=== PATIENT | female | born 1975 | race Hispanic/Latino ===

== ENCOUNTER 2024-04-28 08:18 | Emergency (ER) | payer BC ==
[2024-04-28] MEDS ORDERED: SMZ./TMP. 800/160 MG TABLET ONE (08:50)
[2024-04-28] MEDS ORDERED: CEPHALEXIN 250 MG CAP ONE (08:50)
--- NOTE | 2024-04-28 09:06 | ER ---
Nurse's Notes [facility] Name: Alem Allison Age: 48 yrs Sex: Female : 1975 Arrival Date: 04/28/2024 Time: 08:18 Bed IW1 Private MD: Diagnosis: Cellulitis of head [any part, except face] Presentation: 04/28 08:47 Chief complaint: Patient states: skin irritation to top of head that began 04/23. ss Coronavirus screen: Client denies travel out of the [place] in the last 14 days. Ebola Screen: Patient denies exposure to infectious person. Patient denies travel to an Ebola-affected area in the 21 days before illness onset. Initial Sepsis Screen: Does the patient meet any 2 criteria? No. Patient's initial sepsis screen is negative. Does the patient have a suspected source of infection? No. Patient's initial sepsis screen is negative. Risk Assessment: Do you want to hurt yourself or someone else? Patient reports no desire to harm self or others. Onset of symptoms was April 23, 2024. 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 - Infectious Disease History:: Denies. - Family history:: not pertinent. - Social history:: Smoking status: Patient denies any tobacco usage or history of. - Hospitalizations: : No recent hospitalization is reported. Screenin:20 Abuse screen: Denies threats or abuse. Denies injuries from another. Nutritional ss screening: No deficits noted. Tuberculosis screening: Never had TB. Assessment: 09:20 Reassessment: No changes from previously documented assessment. Patient is alert, ss oriented x 3, equal unlabored respirations, skin warm/dry/pink. Vital Signs: 08:47 Pulse 100; Resp 16; Temp 97.9(TE); Pulse Ox 100% ; Weight 112.04 kg; Height 5 ft. 5 in. ss ; Pain 8; 08:47 Body Mass Index 41.10 (112.04 kg, 165.1 cm) ss 08:47 Pain Scale: Adult ss ED Course: 08:21 Patient arrived in ED. mr 08:22 Trevin Bunch MD is Attending Physician. rn 08:48 Triage completed. ss 08:49 Arm band placed on left wrist. ss 09:20 Deb Christian, KADE is Primary Nurse. ss 09:20 Patient has correct armband on for positive identification. ss 09:20 No provider procedures requiring assistance completed. Patient did not have IV access ss during this emergency room visit. Administered Medications: 08:56 Drug: Trimethoprim-Sulfamethoxazole PO (160 mg-800 mg (DS) 2 tablet PO once Route: PO; ss 09:23 Follow up: Response: No adverse reaction; Medication Administered at Departure ss 08:56 Drug: Cephalexin PO 500 mg PO once Route: PO; ss 09:23 Follow up: Response: Medication Administered at Departure ss Medication: 09:20 VIS not applicable for this client. ss Outcome: 09:06 Discharge ordered by . rn 09:20 Discharged to home ambulatory, ss 09:20 Condition: good 09:20 Discharge instructions given to patient, Instructed on discharge instructions, follow up and referral plans. medication usage, Demonstrated understanding of instructions, follow-up care, medications, Prescriptions given X 1, 09:23 Patient left the ED. ss Signatures: Araceli Harley, Reg Reg mr Trevin Bunch MD MD rn Blanchard, Shelby, KADE BRAUN
--- NOTE | 2024-04-28 09:06 | EDPHYS ---
Physician Documentation [facility] Name: Alem Allison Age: 48 yrs Sex: Female : 1975 Arrival Date: 04/28/2024 Time: 08:18 Bed IW1 Private MD: ED Physician Trevin Bunch HPI: 04/28 08:43 This 48 yrs old Female presents to ER via Unassigned with complaints of Skin rn Problem, Facial Swelling. 08:43 The patient presents with cellulitis of the face. Onset: The symptoms/episode rn began/occurred 7 day(s) ago. Possible cause(s): unknown. Severity of symptoms: At their worst the symptoms were mild, in the emergency department the symptoms are unchanged. The patient has not experienced similar symptoms in the past. Patient reports rash and swelling to scalp, erupted on Dewey Savita and drained purulence. Now noticed swelling to forehead. No fever or chills. No recurrent skin infections.. 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 - Infectious Disease History:: Denies. - Family history:: not pertinent. - Social history:: Smoking status: Patient denies any tobacco usage or history of. - Hospitalizations: : No recent hospitalization is reported. ROS: 08:43 Constitutional: Negative for fever, chills, and weight loss, Neck: Negative for injury, rn pain, and swelling, Skin: Positive for facial swelling and pain Exam: 08:43 Constitutional: This is a well developed, well nourished patient who is awake, alert, rn and in no acute distress. Head/Face: Normocephalic, atraumatic. Mild swelling along the hairline and forehead without fluctuance. Frontal scalp with crusty lesions and cellulitis. No fluctuance or abscess. Eyes: Mild periorbital swelling, no erythema or focal tenderness around eyes. Vital Signs: 08:47 Pulse 100; Resp 16; Temp 97.9(TE); Pulse Ox 100% ; Weight 112.04 kg; Height 5 ft. 5 in. ss ; Pain 8/10; 08:47 Body Mass Index 41.10 (112.04 kg, 165.1 cm) ss 08:47 Pain Scale: Adult ss MDM: 08:22 Medical Screening Exam initiated rn 09:05 Differential diagnosis: cellulitis. Data reviewed: vital signs, nurses notes, and as a rn result, I will discharge patient. Counseling: I had a detailed discussion with the patient and/or guardian regarding the historical points, exam findings, and any diagnostic results supporting the discharge/admit diagnosis, the need for outpatient follow up, to return to the emergency department if symptoms worsen or persist or if there are any questions or concerns that arise at home. Special discussion: I discussed with the patient/guardian in detail that at this point there is no indication for admission to the hospital. It is understood, however, that if the symptoms persist or worsen the patient needs to return immediately for re-evaluation. Administered Medications: 08:56 Drug: Trimethoprim-Sulfamethoxazole PO (160 mg-800 mg (DS) 2 tablet PO once Route: PO; 09:23 Follow up: Response: No adverse reaction; Medication Administered at Departure 08:56 Drug: Cephalexin PO 500 mg PO once Route: PO; 09:23 Follow up: Response: Medication Administered at Departure Disposition Summary: 04/28/24 09:06 Discharge Ordered Notes: Location: Home rn Problem: new rn Symptoms: have improved rn Condition: Stable rn Diagnosis - Cellulitis of head [any part, except face] rn Followup: rn - With: Private Physician - When: As needed - Reason: Recheck today's complaints, Re-evaluation by your physician Discharge Instructions: - Discharge Summary Sheet rn - Cellulitis, Adult rn Forms: - Medication Reconciliation Form rn - Antibiotic rn registry - Prescription Opioid Use rn - Patient Portal Instructions rn - Leadership Thank You Letter rn Prescriptions: - Cephalexin 500 mg Oral Capsule - take 1 capsule ORAL route every 12 hours for 10 days; 20 capsule; Refills: 0, rn Product Selection Permitted - Bactrim DS 800-160 mg Oral Tablet - take 1 tablet ORAL route every 12 hours for 10 days; 20 tablet; Refills: 0, rn Product Selection Permitted Signatures: Trevin Bunch MD MD rn Blanchard, Shelby, RN RN ss Corrections: (The following items were deleted from the chart) 08:45 08:43 Constitutional: This is a well developed, well nourished patient who is awake, rn alert, and in no acute distress. Head/Face: Normocephalic, atraumatic. Mild swelling along the hairline and forehead without fluctuance. Frontal scalp with crusty lesions and cellulitis. No fluctuance or abscess. rn 09:06 09:06 Cellulitis of face rn rn
[2024-04-28 09:27] VITALS: TEMP 97.9; O2SAT 100
== END 2024-04-28 09:23 | disposition home or self-care (01) ==
LOC: ER 08:18
DX: L03.811 Cellulitis of head [any part, except face] (principal)
CPT/HCPCS: 99283

== ENCOUNTER 2024-04-28 20:58 | Inpatient (IN) | payer BC ==
[2024-04-28 22:09] LABS: Absolute Basophils 0.1 K/uL (0-0.5); Absolute Eosinophils 0.1 K/uL (0-0.5); Absolute Lymphocytes (CBC) 1.7 K/uL (0.7-4.9); Absolute Monocytes 0.9 K/uL (0.1-1.3); Absolute Neutrophil 9.8 K/uL (1.8-8.0); Basophils % 0.5 % (0-1.3); Eosinophils % 0.9 % (0-4.4); Hematocrit 36.7 % (36.0-45.0); Hemoglobin 11.9 g/dL (12.0-15.0); Lymphocytes % 13.1 % (15.3-44.8); MCH 27.2 pg (27.0-35.0); MCHC 32.5 g/dL (32.0-36.0); MCV 83.6 fL (80-100); MPV 8.3 fL (7.6-11.3); Monocytes % 7.5 % (3.3-12.3); Nucleated Red Blood Cells % 0.1 % (0-0); Platelets 280 thou/uL (152-406); RBC Red Blood Cell Count 4.38 M/uL (3.86-4.86); Red Cell Distribution Width 13.8 % (12.1-15.2)
[2024-04-28] MEDS ORDERED: METHYLPREDNISOLONE 125 MG INJ ONE (22:12)
[2024-04-28] MEDS ORDERED: DIPHENHYDRAMINE 50 MG/ML VIAL ONE (22:13)
[2024-04-28] MEDS ORDERED: FAMOTIDINE 20 MG/2 ML VIAL IV ONE (22:13)
[2024-04-28] MEDS ORDERED: NA CHLORIDE 0.9% 1,000 ML ONE (22:13)
[2024-04-28 22:17] LABS: PT Prothrombin Time 11.7 SECONDS (9.4-12.5); PTT, Activated Partial Thromb 30.9 SECONDS (24.3-36.9); Protime INR 1.05
[2024-04-28 22:30] LABS: Albumin/Globulin Ratio 0.8 (1.1-1.8); Anion Gap 9.8 mEq/L (5.0-15.0); Bilirubin Total 0.2 mg/dL (0.2-1.0); Potassium 3.8 mEq/L (3.5-5.1)
--- NOTE | 2024-04-28 23:30 | ER ---
Nurse's Notes [facility] Name: Alem Allison Age: 48 yrs Sex: Female : 1975 Arrival Date: 04/28/2024 Time: 20:58 Bed 16 Private MD: Diagnosis: Severe sepsis without septic shock;Cellulitis of head [any part, except face] Presentation: 04/28 21:23 Chief complaint: Patient states: facial swelling started this morning, I came into ER. tm6 They gave me keflex and bactrim. My pain and swelling have gotten worse. The drainage in my eyes is now brown. Coronavirus screen: Client denies travel out of the [place] in the last 14 days. Ebola Screen: Patient negative for fever greater than or equal to 101.5 degrees Fahrenheit, and additional compatible Ebola Virus Disease symptoms Patient denies exposure to infectious person. Patient denies travel to an Ebola-affected area in the 21 days before illness onset. No symptoms or risks identified at this time. Initial Sepsis Screen: Does the patient meet any 2 criteria? HR > 90 bpm. Does the patient have a suspected source of infection? No. Patient's initial sepsis screen is negative. Risk Assessment: Do you want to hurt yourself or someone else? Patient reports no desire to harm self or others. Onset of symptoms was April 28, 2024. 21:23 Method Of Arrival: Ambulatory tm6 21:23 Acuity: SHANT 3 tm6 Triage Assessment: 21:23 General: Appears uncomfortable, Behavior is calm, cooperative. Pain: Complains of pain tm6 in face Pain currently is 5 out of 10 on a pain scale. EENT: Eyes are tearing on right eye and left eye facial swelling. Neuro: Level of Consciousness is awake, alert, obeys commands, Oriented to person, place, time, situation. Cardiovascular: Patient's skin is warm and dry. Respiratory: Airway is patent Respiratory effort is even, unlabored, Respiratory pattern is regular, symmetrical. GI: No signs and/or symptoms were reported involving the gastrointestinal system. Abdomen is obese. : No signs and/or symptoms were reported regarding the genitourinary system. Derm: No signs and/or symptoms reported regarding the dermatologic system. Musculoskeletal: No signs and/or symptoms reported regarding the musculoskeletal system. 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 - Infectious Disease History:: Denies. - Social history:: Smoking status: Patient denies any tobacco usage or history of. Screenin:[address] [facility] ED Fall Risk Assessment (Adult) History of falling in the last 3 months, le1 including since admission No falls in past 3 months (0 pts) Confusion or Disorientation No (0 pts) Intoxicated or Sedated No (0 pts) Impaired Gait No (0 pts) Mobility Assist Device Used No (0 pt) Altered Elimination No (0 pt) Score/Fall Risk Level 0 - 2 = Low Risk Oriented to surroundings, Maintained a safe environment, Educated pt \T\ family on fall prevention, incl call for assistance when getting out of bed, Assessed \T\ reinforced patient's understanding of fall precautions, Hourly rounding (assess needs \T\ fall precautionary measures) done, Used ambulatory aids as needed (educated on \T\ assisted with). Abuse screen: Denies threats or abuse. Denies injuries from another. Nutritional screening: No deficits noted. Tuberculosis screening: No symptoms or risk factors identified. Assessment: 22:33 General: Appears in no apparent distress. comfortable, Behavior is calm, cooperative. le1 Pain: Complains of pain in left eye and right eye and face. Neuro: No deficits noted. Cardiovascular: No deficits noted. Respiratory: No deficits noted. GI: No deficits noted. : No deficits noted. EENT: Eyes Bilat eye swelling with redness. Vital Signs: 21:22 Temp 98.5(TE); Weight 112.04 kg; Height 5 ft. 6 in. ; Pain 8/10; tm6 21:23 BP 152 / 84; Pulse 103; Resp 19; Pulse Ox 99% on R/A; MAP 97 mmHg; tm6 22:37 BP 124 / 76; Pulse 91; Resp 18; Pulse Ox 97% on R/A; Pain 8/10; le1 04/29 00:12 BP 121 / 75; Pulse 93; Resp 18; Temp 98(O); Pulse Ox 96% on R/A; rg5 04/28 21:22 Body Mass Index 39.87 (112.04 kg, 167.64 cm) tm6 04/28 21:22 Pain Scale: Adult tm6 22:37 Pain Scale: Adult le1 ED Course: 04/28 21:02 Patient arrived in ED. jj6 21:23 Arm band placed on right wrist. tm6 21:24 Stephanie Nolasco FNP-C is PHCP. kb 21:24 Joaquin Parish MD is Attending Physician. kb 21:25 Triage completed. tm6 21:30 Myron Lyle, KADE is Primary Nurse. le1 22:35 Patient has correct armband on for positive identification. Call light in reach. Side le1 rails up X2. Adult w/ patient. Provided Education on: Informed patient to use call light if needing assistance. 23:29 Anthony Farias MD is Hospitalizing Provider. kb 04/29 00:11 No provider procedures requiring assistance completed. Inserted saline lock: 20 gauge rg5 in right antecubital area, using aseptic technique. Blood collected. Flushed with 10 mL NS Administered Medications: 04/28 22:29 Drug: NS 0.9% IV 1000 ml IV at 1000 ml once; to be given as a bolus over 60 minutes le1 Route: IV; Rate: 1000 ml; Site: right antecubital; 04/29 00:00 Follow up: IV Status: Completed infusion; IV Intake: 1000ml rg5 04/28 22: Drug: MethylPrednisoLONE IVP 125 mg IVP once Route: IVP; Site: right antecubital; le1 23:58 Follow up: Response: No adverse reaction le1 22:29 Drug: diphenhydrAMINE IVP 12.5 mg IVP once Route: IVP; Site: right antecubital; le1 23:58 Follow up: Response: No adverse reaction le1 22:29 Drug: Famotidine IVP 20 mg IVP once; dilute with 10 mL 0.9% NaCl; give over 2 minutes le1 Route: IVP; Site: right antecubital; 23:58 Follow up: Response: No adverse reaction le1 23:50 Drug: Clindamycin IVPB 300 mg IVPB once over 30 mins; (mix in 50 mL) Route: IVPB; rg5 Infused Over: 30 mins; Site: right antecubital; 04/29 02:42 Follow up: IV Status: Completed infusion; IV Intake: 5000ml rg5 Medication: 00:11 VIS not applicable for this client. rg5 Intake: 00:00 IV: 1000ml; Total: 1000ml. rg5 02:42 IV: 5000ml; Total: 6000ml. rg5 Outcome: 04/28 23:29 Decision to Hospitalize by Provider. kb 04/29 00:11 Admitted to ER Hold. Please see [facility] for further documentation. rg5 Condition: stable Instructed on the need for admit, 06:35 Patient left the ED. rg5 Signatures: Stephanie Nolasco, ASSEMBLY ADJUSTER-C ASSEMBLY ADJUSTER-Ckb Heidi Damonj6 Evan Salazar RN RN tm6 Shahzad Quinn RN RN rg5 Myron Lyle RN RN le1
--- NOTE | 2024-04-28 23:30 | EDPHYS ---
Physician Documentation [facility] Name: Alem Allison Age: 48 yrs Sex: Female : 1975 Arrival Date: 04/28/2024 Time: 20:58 Bed 16 Private MD: ED Physician Joaquin Parish HPI: 04/28 23:31 This 48 yrs old Female presents to ER via Ambulatory with complaints of Eye kb Swelling, Drainage From Eye, WOUND ON SCALP. 23:31 Pt is a 48 year old female who presents for worsening pain and swelling to face. States kb she developed a sore to the top of her head about 2 weeks ago. States it popped about a week ago and has been draining. Started doxycycline yesterday. Woke up today with swelling to forehead and around eyes. Was seen here this morning and started on bactrim and keflex. States she was told to come back for worsening symptoms and her symptoms have gotten worse throughout the day. History of diabetes that is not well controlled. . 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 - Infectious Disease History:: Denies. - Social history:: Smoking status: Patient denies any tobacco usage or history of. ROS: 23:29 Constitutional: As per HPI kb Exam: 22:11 ECG was reviewed by the Attending Physician. kb 23:29 Constitutional: This is a well developed, well nourished patient who is awake, alert, kb and in no acute distress. Head/Face: Normocephalic, atraumatic. ENT: Moist Mucous membranes Cardiovascular: Regular rate Respiratory: Respirations even and unlabored. No increased work of breathing. Talking in full sentences MS/ Extremity: Pulses equal, no cyanosis. Neurovascular intact. Full, normal range of motion. Neuro: Awake and alert, GCS 15, oriented to person, place, time, and situation. 23:29 Head/face: Noted is no obvious of injury or deformity except swelling, that is moderate, that is severe, of the forehead, right eye and left eye, 23:29 Skin: abscess, that is small, of the top of head, with drainage, Vital Signs: 21:22 Temp 98.5(TE); Weight 112.04 kg; Height 5 ft. 6 in. ; Pain 8/10; tm6 21:23 BP 152 / 84; Pulse 103; Resp 19; Pulse Ox 99% on R/A; MAP 97 mmHg; tm6 22:37 BP 124 / 76; Pulse 91; Resp 18; Pulse Ox 97% on R/A; Pain 8/10; le1 04/29 00:12 BP 121 / 75; Pulse 93; Resp 18; Temp 98(O); Pulse Ox 96% on R/A; rg5 04/28 21:22 Body Mass Index 39.87 (112.04 kg, 167.64 cm) tm6 04/28 21:22 Pain Scale: Adult tm6 22:37 Pain Scale: Adult le1 MDM: 04/28 21:24 Medical Screening Exam initiated kb 23:30 Differential diagnosis: cellulitis, abscess, allergic reaction. Data reviewed: vital kb signs, nurses notes. Consideration of Admission/Observation Patient was admitted/placed on observation. Escalation of care including admission/observation considered. Management of patient was discussed with the following: Hospitalist: Dr Farias accepts pt for admission. Historians other than the Patient: Spouse/Significant Other: spouse. Counseling: I had a detailed discussion with the patient and/or guardian regarding the historical points, exam findings, and any diagnostic results supporting the discharge/admit diagnosis, lab results, the need for further work-up and treatment in the hospital. 23:33 Care significantly affected by the following chronic conditions: Diabetes. kb 04/28 21:37 Order name: Blood Culture Adult (2) kb 04/28 21:37 Order name: CBC with Diff; Complete Time: 22:11 kb 04/28 21:37 Order name: CMP; Complete Time: 22:37 kb 04/28 21:37 Order name: Lactate w/ 2H reflex if indic.; Complete Time: 23:22 kb 04/28 21:37 Order name: Protime (+inr); Complete Time: 22:23 kb 04/28 21:37 Order name: Ptt, Activated; Complete Time: 22:23 kb 04/28 23:23 Order name: Ghost Lactate-NO COLLECT Timer EDMS 04/28 23:53 Order name: CBC with Automated Diff EDMS 04/28 23:53 Order name: CBC with Automated Diff EDMS 04/29 01:19 Order name: Glucose, Ancillary Testing EDMS 04/29 02:55 Order name: Lactate Sepsis 2 HR Follow-up EDMS 04/28 21:37 Order name: Cardiac monitoring; Complete Time: 22:11 kb 04/28 21:37 Order name: EKG - Nurse/Tech; Complete Time: 22:11 kb 04/28 21:37 Order name: IV Saline Lock - Large Bore; Complete Time: 22:11 kb 04/28 21:37 Order name: Labs collected and sent; Complete Time: 22:11 kb 04/28 21:37 Order name: O2 Per Protocol; Complete Time: 22:11 kb 04/28 21:37 Order name: O2 Sat Monitoring; Complete Time: 22:11 kb 04/28 21:37 Order name: Vital Signs; Complete Time: 22:11 kb EC:11 Rate is 96 beats/min. Rhythm is regular. QRS [place] is Normal. [place] interval is normal at kb 140 msec. QRS interval is normal at 70 msec. QT interval is normal at 439 msec. Administered Medications: 22:29 Drug: NS 0.9% IV 1000 ml IV at 1000 ml once; to be given as a bolus over 60 minutes le1 Route: IV; Rate: 1000 ml; Site: right antecubital; 04/29 00:00 Follow up: IV Status: Completed infusion; IV Intake: 1000ml rg5 04/28 22:29 Drug: MethylPrednisoLONE IVP 125 mg IVP once Route: IVP; Site: right antecubital; le1 23:58 Follow up: Response: No adverse reaction le1 22:29 Drug: diphenhydrAMINE IVP 12.5 mg IVP once Route: IVP; Site: right antecubital; le1 23:58 Follow up: Response: No adverse reaction le1 22:29 Drug: Famotidine IVP 20 mg IVP once; dilute with 10 mL 0.9% NaCl; give over 2 minutes le1 Route: IVP; Site: right antecubital; 23:58 Follow up: Response: No adverse reaction le1 23:50 Drug: Clindamycin IVPB 300 mg IVPB once over 30 mins; (mix in 50 mL) Route: IVPB; rg5 Infused Over: 30 mins; Site: right antecubital; 04/29 02:42 Follow up: IV Status: Completed infusion; IV Intake: 5000ml rg5 Disposition Summary: 04/28/24 23:29 Hospitalization Ordered Notes: Provider: Anthony Farias Condition: Stable kb Problem: new kb Symptoms: are unchanged kb Bed/Room Type: Standard Hospitalization Status: Inpatient Admission(04/29/24 04:40) Location: Telemetry/MedSurg (observation)(04/29/24 04:40) Room Assignment: 202(04/29/24 04:40) Diagnosis - Severe sepsis without septic shock kb - Cellulitis of head [any part, except face] kb Forms: - Medication Reconciliation Form kb - SBAR form kb - Leadership Thank You Letter kb Addendum: 05/01/2024 16:22 I agree with the assessment and plan of care. e c2 Signatures: Dispatcher [employer] EDStephanie Moreno, RESEARCH FOOD TECHNOLOGIST-C RESEARCH FOOD TECHNOLOGIST-CkMar Burns, RN RN Carmella Cruz RN RN lg3 Joaquin Parish MD MD ec2 Evan Salazar, RN RN tm6 Shahzad Quinn RN RN rg5 Myron Lyle RN RN le1 Corrections: (The following items were deleted from the chart) 04/28 21:37 21:37 BLOOD CULTURE*+BA.LAB.BRZ ordered. EDMS EDMS 21:37 21:37 CBC+H.LAB.BRZ ordered. EDMS EDMS 21:37 21:37 COMPREHENSIVE METABOLIC PANEL+C.LAB.BRZ ordered. EDMS EDMS 21:37 21:37 LACTATE+C.LAB.BRZ ordered. EDMS EDMS 21:37 21:37 PROTIME (+INR)+COAG.LAB.BRZ ordered. EDMS EDMS 21:37 21:37 PTT, ACTIVATED+COAG.LAB.BRZ ordered. EDMS EDMS 23:50 23:29 Telemetry/MedSurg (observation) sukhdev 3 23:50 23:29 kb 3 04/29 04:40 04/28 23:29 Observation kb kl 04/29 04:40 04/28 23:50 [facility] ER HOLD lg3 kl 04/29 04:40 04/28 23:50 ERHOLD- lg3 kl
[2024-04-28] MEDS: INSULIN GLARGINE 100 UNIT/ML SQ ONE (23:45)
[2024-04-28] MEDS ORDERED: CLINDAMYCIN 600MG/D5W 50 ML IV ONE (23:56)
--- NOTE | 2024-04-28 23:57 | P.HP ---
Certification for Inpatient With expected LOS: >2 Midnights Practitioner: I am a practitioner with admitting privileges, knowledge of patient current condition, hospital course, and medical plan of care. Services: Services provided to patient in accordance with Admission requirements found in Title 42 Section 412.3 of the Code of Federal Regulations Patient History Date of Service: 04/28/24 Reason for admission: Scalp cellulitis possible allergic reaction History of Present Illness: Patient is 48 years of age noticed a pimple on the right side of her head in the temporal region [place] and then progressed became increasingly larger and crusty patient ended up here in the hospital emergency room she was prescribed Keflex Bactrim and doxycycline apparently she was taking doxycycline before she came here and was discharged on Keflex and Bactrim. Patient's face started swelling became more puffy and back here in the emergency room she has significant discomfort and is on her head regions appears to be fairly localized infection diabetes is also [id number] Allergies No Known Allergies Allergy (Unverified 04/28/24 23:55) - Past Medical/Surgical History -: diabetes -: Hypertension Past Surgical History: Reviewed- Non-Contributory - Social History Smoking Status: Never smoker Review of Systems 10-point ROS is otherwise unremarkable Physical Examination - Vital Signs Temperature: 98.8 F Blood Pressure: 124/76 Pulse: 91 Respirations: 18 Pulse Ox (%): 97 - Physical Exam General: Alert, In no apparent distress, Oriented x3 HEENT: Other (Patient has a crusted lesion on the right side of the temporal region her face appears to be puffy and swollen with some closure of the right side of the eye) Neck: Supple Respiratory: Clear to auscultation bilaterally Cardiovascular: No edema, Regular rate/rhythm Gastrointestinal: Normal bowel sounds, Soft and benign - Studies Laboratory Data (last 24 hrs) 04/28/24 04/28/24 04/28/24 21:57 21:57 21:57 WBC 12.60 H Hgb 11.9 L Hct 36.7 Plt Count 280 PT 11.7 INR 1.05 APTT 30.9 Sodium 136 Potassium 3.8 BUN 13 Creatinine 0.63 Glucose 302 H Total Bilirubin 0.2 AST 19 ALT 28 Alkaline Phosphatase 71 Assessment and Plan - Problems (Diagnosis) (1) Cellulitis of scalp Current Visit: Yes Status: Acute Plan: Patient is 48 years of age problem started [place] and has progressed to a very crusted painful lesion on the right side of her head and this was also been associated with some swelling and puffiness of her face may have been an allergic reaction to one of the medication she was taking apparently she had taken a dose of doxycycline and her face started swelling and then later on patient was prescribed Keflex and Bactrim this morning was discharged from the emergency room came back again patient is a diabetic her blood sugars are elevated white count is mildly elevated I have started patient on Zyvox aggressive control of blood sugars - Advance Directives Does patient have a Living Will: No Does patient have a Durable POA for Healthcare: No
[2024-04-28] MEDS ORDERED: D10W 125 ML IV PRN (23:58)
[2024-04-28] MEDS: INSULIN REGULAR (HUMAN) 100 UNIT/ML SQ SCH (23:58)
[2024-04-28] MEDS ORDERED: GLUCAGON 1 MG/VIAL IM PRN (23:58)
[2024-04-29] MEDS ORDERED: INSULIN REGULAR (HUMAN) 100 UNIT/ML ONE (01:19)
[2024-04-29] MEDS ORDERED: INSULIN GLARGINE 100 UNIT/ML SQ ONE (01:19)
[2024-04-29 02:51] VITALS: BMI 39.7
[2024-04-29] MEDS ORDERED: LINEZOLID 600 MG IVPB 600 MG/300 ML BAG IV ONE (03:27)
[2024-04-29] MEDS: LINEZOLID 600 MG IVPB 600 MG/300 ML BAG IV SCH (03:38)
[2024-04-29 05:37] LABS: Absolute Lymphocytes (CBC) 0.8 K/uL (0.7-4.9); Absolute Monocytes 0.2 K/uL (0.1-1.3); Basophils % 0.3 % (0-1.3); Hematocrit 37.9 % (36.0-45.0); Lymphocytes % 5.1 % (15.3-44.8); MCH 26.8 pg (27.0-35.0); MCHC 31.5 g/dL (32.0-36.0); MCV 85.1 fL (80-100); MPV 9.1 fL (7.6-11.3); Monocytes % 1.2 % (3.3-12.3); Neutrophils % 93.4 % (41.7-73.7); Platelets 293 thou/uL (152-406); RBC Red Blood Cell Count 4.46 M/uL (3.86-4.86); Red Cell Distribution Width 13.8 % (12.1-15.2)
[2024-04-29] MEDS: ACETAMINOPHEN 500 MG TAB PO PRN (08:10)
--- NOTE | 2024-04-29 09:20 | P.PN ---
Date of Service: 04/29/24 Subjective: feeling better, edema and pain to forehead, top of head improved Review of Systems 10-point ROS is otherwise unremarkable General: Unremarkable Eyes: Unremarkable ENT: Unremarkable Respiratory: chest feels tight like "asthma" Cardiovascular: Unremarkable Gastrointestinal: Unremarkable Musculoskeletal: Unremarkable Integumentary: Unremarkable Neurological: Unremarkable Lymphatics: Unremarkable Vitals: Reviewed - Physical Exam: General: Alert, Oriented x3, Cooperative, no distress HEENT: Atraumatic, Normocephalic, periorbital areas edematous without erythema, EOMI Neck: Supple Respiratory: Clear to auscultation bilaterally, Normal air movement Cardiovascular: No edema, Regular rate/rhythm, Normal S1 S2 Capillary refill: <2 Seconds Gastrointestinal: Soft and benign, without hepatosplenomegaly Musculoskeletal: No clubbing, No swelling Integumentary: No rashes, No breakdown,top of head just right of midline with honey colored crusting over a melissa sized lesion, spot lesion to area to the left or that and a midsized lesion to just proximal to the left post-auricular area with the same crusting Neurological: Normal gait, Normal speech, Normal strength at 5/5 x4 extr, Cranial nerves 3-12 intact, Normal affect Lymphatics: No axilla or inguinal lymphadenopathy Assessment and plan wounds to scalp (Impetigo - Probable staph) failed outpatient therapy sepsis diabetes with hyperglycemia Plan: 1. Continue IV antibiotics (zyvox) 2. Continue with local wound care - bactroban 3. Gentle IV hydration 4. Monitor and trend labs 5. Strict blood sugar monitoring, with SSI coverage and 20U Insulin Glargine daily 6. ADA diet - change obs to inpt to await cultures 7. Pain control 8. GI and DVT prophylaxis <Bhakti Wooten - Last Filed: 04/29/24 09:12> Apparent cellulitis of scalp, failed outpatient oral antibiotics, uncontrolled type 2 diabetes on GLP-1 receptor agonist, metformin, Toujeo 40 units Clinically responding to linezolid, severe hypoglycemia secondary to uncontrolled type 2 diabetes, will start Lantus, metformin, moderate dose sliding scale <JAYE Lam - Last Filed: 04/29/24 17:48>
[2024-04-29] MEDS: FLU (Fluarix Triv) TS24-25(6MOS UP)/PF 45 MCG/0.5 ML Syringe IM ONE (09:21)
[2024-04-29 09:39] LABS: Blood Morphology Comment NOT SEEN (NOT SEEN); Platelet Estimate ADEQ; White Blood Cell Scan OK (OK)
--- NOTE | 2024-04-29 11:09 | EKG ---
Test Date: 2024-04-28 Test Time: 22:07:25 [facility] Clinic Manager: [id number] MEASUREMENT RESULTS: Intervals: Rate: 96 HI: 140 QRSD: 70 QT: 348 QTc: 439 [place]: P: 25 HI: 140 QRS: 58 T: 31 INTERPRETIVE STATEMENTS: Normal sinus rhythm Low voltage QRS Borderline ECG No previous ECG available for comparison Electronically Signed On 04-29-24 11:08:19 [employer]ER[employer]ARD [employer]OXES ESTIMATOR by Ibrahima Webber
[2024-04-29] MEDS: METFORMIN HCL 500 MG TAB PO SCH (17:52)
[2024-04-29] MEDS: INSULIN GLARGINE 100 UNIT/ML SQ SCH (18:11)
[2024-04-29] MEDS: Mupirocin NASAL 2 APPL/1 GM TUBE NAS SCH (21:47)
[2024-04-30 07:20] LABS: Absolute Basophils 0.1 K/uL (0-0.5); Absolute Eosinophils 0.1 K/uL (0-0.5); Absolute Lymphocytes (CBC) 2.8 K/uL (0.7-4.9); Absolute Monocytes 1.2 K/uL (0.1-1.3); Absolute Neutrophil 11.6 K/uL (1.8-8.0); Basophils % 0.3 % (0-1.3); Eosinophils % 0.5 % (0-4.4); Hematocrit 34.5 % (36.0-45.0); Hemoglobin 11.1 g/dL (12.0-15.0); Lymphocytes % 17.7 % (15.3-44.8); MCH 27.4 pg (27.0-35.0); MCHC 32.2 g/dL (32.0-36.0); MCV 85.2 fL (80-100); MPV 9.3 fL (7.6-11.3); Monocytes % 7.6 % (3.3-12.3); Neutrophils % 73.9 % (41.7-73.7); Platelets 269 thou/uL (152-406); RBC Red Blood Cell Count 4.06 M/uL (3.86-4.86); Red Cell Distribution Width 13.7 % (12.1-15.2)
[2024-04-30 07:37] LABS: Albumin 2.7 g/dL (3.4-5.0); Albumin/Globulin Ratio 0.7 (1.1-1.8); Anion Gap 9.5 mEq/L (5.0-15.0); Bilirubin Total 0.2 mg/dL (0.2-1.0); Globulin 3.8 g/dL (2.3-3.5); Protein, Total 6.5 g/dL (6.4-8.2)
[2024-04-30 07:39] LABS: Potassium 3.5 mEq/L (3.5-5.1)
[2024-04-30] MEDS: LINEZOLID 600 MG TAB PO SCH (08:25)
--- NOTE | 2024-04-30 10:53 | P.PN ---
Date of Service: 04/30/24 Subjective: feeling better, edema and pain to forehead, top of head improved, area of largest lesion unroofed - oozing exudate Review of Systems 10-point ROS is otherwise unremarkable General: Unremarkable Eyes: Unremarkable ENT: Unremarkable Respiratory: wheeze improved Cardiovascular: Unremarkable Gastrointestinal: Unremarkable Musculoskeletal: Unremarkable Integumentary: Unremarkable Neurological: Unremarkable Lymphatics: Unremarkable Vitals: Reviewed - Physical Exam: General: Alert, Oriented x3, Cooperative, no distress HEENT: Atraumatic, Normocephalic, periorbital areas edematous without erythema, EOMI Neck: Supple Respiratory: Clear to auscultation bilaterally, Normal air movement Cardiovascular: No edema, Regular rate/rhythm, Normal S1 S2 Capillary refill: <2 Seconds Gastrointestinal: Soft and benign, without hepatosplenomegaly Musculoskeletal: No clubbing, No swelling Integumentary: No rashes, No breakdown,top of head just right of midline with unroofed area this am which is oozing exudate over a melissa sized lesion, smaller than yesterday spot lesion to area to the left or that and a midsized lesion to just proximal to the left post-auricular area with the same crusting Neurological: Normal gait, Normal speech, Normal strength at 5/5 x4 extr, Cranial nerves 3-12 intact, Normal affect Lymphatics: No axilla or inguinal lymphadenopathy Assessment and plan wounds to scalp (Impetigo - Probable staph) failed outpatient therapy sepsis diabetes with hyperglycemia Plan: 1. Continue IV antibiotics (zyvox), continue po Zyvox, WBC hopefully at peak today, Neut % decreased. Repeat blood cultures drawn today. Initial cultures not returned yet,. Concern for toxic shock from gram + bacteria. 2. Continue with local wound care -scrub with hibiclens, bactroban to nares - I expressed exudate from largest wound today. Will re-inforce need for scrub 3. Gentle IV hydration 4. Monitor and trend labs 5. Strict blood sugar monitoring, with SSI coverage and 20U Insulin Glargine daily, Hemoglobin A1c 8.5. Semglee 30u daily and added Metformin 1000mg po BID last pm 6. ADA diet - change obs to inpt to await cultures 7. Pain control 8. GI and DVT prophylaxis <Bhakti Wooten - Last Filed: 04/30/24 10:47> Purulent cellulitis of the scalp with sepsis Uncontrolled type 2 diabetes Morbid obesity <JAYE Lam - Last Filed: 04/30/24 13:43>
[2024-04-30] MEDS: FLUCONAZOLE 100 MG TAB PO ONE (11:08)
[2024-04-30] MEDS: LACTOBACILLUS/ACIDOPHILUS TAB PO SCH (14:00)
--- NOTE | 2024-05-01 11:18 | P.DS ---
Admission Date: 04/29/24 Discharge Date: 05/03/24 Disposition: ROUTINE DISCHARGE Discharge Condition: GOOD Reason for Admission: Scalp cellulitis possible allergic reaction Consultations: Dr. Anthony Brief History of Present Illness: Ms. Vera is feeling better with no dyspnea at rest. Exertional dyspnea is decreased and she is more comfortable. She is ambulating around the room with her cane. Edema has decreased. Renal function at baseline. She denies chest pain. She is safe for discharge with Lasix daily instead of every other day x 2 weeks. She may continue the spironolactone 3 times weekly. We will continue her at home diabetes management. She should follow-up with Dr. Weiss, cardiology, and nephrology in 1 to 2 weeks. Last echo documented 01/05/2024 -ejection fraction 60 to 65%, mild MR/TR, severe pulmonary hypertension. Hospital Course: Ms. Allison is feeling better, her edema has subsided, and the scalp wound to the top of head just right of center is better organized with draining exudate. The other 2 scalp wounds have healed. Vital signs have been stable with no fever. Blood cultures remain negative. Dr. Anthony to consult for I&D of mid scalp wound. We will continue Zyvox for 4 additional days to complete 7 days of therapy. She will continue intranasal Bactroban x 7 days. Ms. Allison's blood sugar has been optimized. With the resolution of her infection, she can resume her normal home therapy. She will need to follow-up with her PCP in 1 to 2 weeks. I&D of scalp mass performed 05/02/[address] Anthony. General: Alert, In no apparent distress, Oriented x3 HEENT: Atraumatic, Normocephalic, Other (scalp wounds improved, less facial edema, no erythema) Respiratory: Normal air movement Cardiovascular: Normal pulses, Regular rate/rhythm, Normal S1 S2 Capillary refill: <2 Seconds Gastrointestinal: Normal bowel sounds Musculoskeletal: No clubbing Integumentary: Other (largest scalp wound open, expressing thick exudate, less tender, less swollen) Neurological: Normal speech, Normal tone, Normal affect Lymphatics: No axilla or inguinal lymphadenopathy External genitalia: Deferred Rectal: Deferred Laboratory Data at Discharge: WBC 15.80 thou/uL (4.3-10.9) H 04/30/24 04:32 Hgb 11.1 g/dL (12.0-15.0) L 04/30/24 04:32 Hct 34.5 % (36.0-45.0) L 04/30/24 04:32 Plt Count 269 thou/uL (152-406) 04/30/24 04:32 PT 11.7 SECONDS (9.4-12.5) 04/28/24 21:57 INR 1.05 04/28/24 21:57 APTT 30.9 SECONDS (24.3-36.9) 04/28/24 21:57 Sodium 138 mEq/L (136-145) 04/30/24 04:32 Potassium 3.5 mEq/L (3.5-5.1) 04/30/24 04:32 BUN 15 mg/dL (7-18) 04/30/24 04:32 Creatinine 0.57 mg/dL (0.55-1.02) 04/30/24 04:32 Glucose 211 mg/dL (74-106) H 04/30/24 04:32 Total Bilirubin 0.2 mg/dL (0.2-1.0) 04/30/24 04:32 AST 19 U/L (15-37) 04/30/24 04:32 ALT 26 U/L (13-56) 04/30/24 04:32 Alkaline Phosphatase 69 U/L (45-117) 04/30/24 04:32 Home Medications: Insulin Glargine,Hum.rec.anlog [Toujeo Max Solostar] 40 units SQ DAILY 04/29/24 Losartan Potassium 50 mg PO DAILY 04/29/24 Metformin ER [Glucophage ER*] 1,000 mg PO BID 04/29/24 Semaglutide [Ozempic] 2 mg SQ EVERY 7TH DAY 04/29/24 Mupirocin Calcium [Bactroban Nasal*] 1 appl SHAI BID #1 tube 05/01/24 Codeine/APAP [Tylenol W/Codeine #3 tab] 1 tab PO TID PRN #15 tab 05/03/24 Linezolid [Zyvox*] 600 mg PO BID #6 tab 05/03/24 New Medications: Mupirocin Calcium [Bactroban Nasal*] 1 appl SHAI BID #1 tube Codeine/APAP [Tylenol W/Codeine #3 tab] 1 tab PO TID PRN #15 tab PRN Reason: Pain Linezolid [Zyvox*] 600 mg PO BID #6 tab Physician Discharge Instructions: Ms. Allison is feeling better, her edema has subsided, and her white count and blood sugar is trending down. We will continue Zyvox for 3 additional days to complete 7 days of therapy. She will continue intranasal Bactroban x 7 days. Ms. Allison's blood sugar has been optimized. With the resolution of her infection, she can resume her normal home therapy. She will need to follow-up with her PCP in 1 to 2 weeks. I&D of scalp mass performed 05/02/[address] Nadia hernandez. Please follow up with Dr. Anthony in 1-2 weeks. Diet: ADA Activity: Ad ranjit Followup: Layton Anthony MD [ACTIVE - CAN ADMIT] - 1-2 Weeks John Edmonds PAC [Primary Care Provider] - 1-2 Weeks
--- NOTE | 2024-05-01 14:34 | P.PN ---
Date of Service: 05/01/24 Subjective: feeling better, edema and pain to forehead, top of head improved, area of largest lesion unroofed - oozing exudate Review of Systems 10-point ROS is otherwise unremarkable General: Unremarkable Eyes: Unremarkable ENT: Unremarkable Respiratory: wheeze improved Cardiovascular: Unremarkable Gastrointestinal: Unremarkable Musculoskeletal: Unremarkable Integumentary: Unremarkable Neurological: Unremarkable Lymphatics: Unremarkable Vitals: Reviewed - Physical Exam: General: Alert, Oriented x3, Cooperative, no distress HEENT: Atraumatic, Normocephalic, periorbital areas mildly edematous without erythema, EOMI Neck: Supple Respiratory: Clear to auscultation bilaterally, Normal air movement Cardiovascular: No edema, Regular rate/rhythm, Normal S1 S2 Capillary refill: <2 Seconds Gastrointestinal: Soft and benign, without hepatosplenomegaly Musculoskeletal: No clubbing, No swelling Integumentary: No rashes, No breakdown,top of head just right of midline with expression of thick exudate this am over the melissa sized lesion, other previous lesions resolving/resolved Neurological: Normal gait, Normal speech, Normal strength at 5/5 x4 extr, Cranial nerves 3-12 intact, Normal affect Lymphatics: No axilla or inguinal lymphadenopathy Assessment and plan wounds to scalp (Impetigo - Probable staph) failed outpatient therapy sepsis diabetes with hyperglycemia Plan: 1. Continue IV antibiotics (zyvox), continue po Zyvox, WBC hopefully at peak today, Neut % decreased. Repeat blood cultures drawn today. Initial cultures not returned yet,. Concern for toxic shock from gram + bacteria. 2. Continue with local wound care -scrub with hibiclens, bactroban to nares - I expressed exudate from largest wound again today. Will re-inforce need for scrub - Pt seen by Dr. Anthony for I&D of scalp abscess in am. Will place orders to change Zyvox to IV, NPO post MN. 3. Gentle IV hydration 4. Monitor and trend labs 5. Strict blood sugar monitoring, with SSI coverage and 20U Insulin Glargine daily, Hemoglobin A1c 8.5. Semglee 30u daily and added Metformin 1000mg po BID last pm, blood sugar readings coming down. 6. ADA diet - change obs to inpt to await cultures 7. Pain control - denies pain 8. GI and DVT prophylaxis <WootenBhakti Godfrey - Last Filed: 05/01/24 14:30> Operative I&D of scalp abscess is planning per general surgeon planning consultant. Clinically her infection and severe hyperglycemia improving with empiric antibiotics and basal plus corrective insulin with metformin. <JAYE Lam - Last Filed: 05/01/24 17:23>
--- NOTE | 2024-05-01 14:56 | HP ---
Date of Admission: 04/29/2024 History Of Present Illness: Ms. Allison is a 48-year-old patient, who comes to us with infected scalp mass that did not improve with outpatient therapy. The patient was admitted to the hospital for IV antibiotics and a surgical consult was obtained for a surgical debridement. She has this lump ____ started draining pus and even the antibiotics by mouth did not improve. 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 She denies any trauma, any dysuria, hematuria, hematochezia, melena. Denies any rece nt traveling out of the country. Denies any family member sick at home. Review of Systems: 10 points otherwise unremarkable. Allergies: NONE. Past Medical History: Hypertension. She does not smoke. She does not drink alcohol. Allergies: UNKNOWN. Family History: Noncontributory. Physical Examination: Vital Signs: Reviewed. General: The patient is awake, alert. HEENT: Pupils are equal and reactive. Anicteric. Neck: Supple. Chest: Clear. Heart: S1, S2. Abdomen: Soft and depressible. Extremities: Good capillary refill. Integumentary: Over the area of the scalp, the patient has about 3 x 3 cm area of cellulitis with an ulcerated mass present. This is the area that she claims has been infected . Assessment: A 48-year-old patient with infected scalp mass near the frontal region. The area will b e excised with abscess drained and debrided. 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 She understands also this will be painful. She preferred to be under anesthetic and that is what we are going to do. We explained to her the benefits, alternatives, and risks, which includ e, but not limited to infection, bleeding, damage to adjacent structures, anesthesia complication, al opecia, LA, even . She will require wound care. She is going to be kept NPO after midnight and then proceed accordingly. MAXIM/MADHURI Voice ID: [id number]
[2024-05-01] MEDS: LINEZOLID 600 MG IVPB 600 MG/300 ML BAG IV SCH (20:16)
[2024-05-02] MEDS: NA CHLORIDE 0.9% 1,000 ML ONE (08:50)
[2024-05-02] MEDS ORDERED: LIDOCAINE 2% MPF 5 ML VIAL ONE (09:12)
[2024-05-02] MEDS ORDERED: FENTANYL CITR 100 MCG/2 ML ONE (09:12)
[2024-05-02] MEDS ORDERED: ONDANSETRON 4 MG/2 ML VIAL ONE (09:12)
[2024-05-02] MEDS ORDERED: propofoL 200 MG/20 ML VIAL IV ONE (09:12)
[2024-05-02] MEDS ORDERED: MIDAZOLAM HCL 2 MG/2 ML INJ ONE (09:12)
[2024-05-02] MEDS ORDERED: dexAMETHasone 10 MG/ML VIAL ONE (09:40)
--- NOTE | 2024-05-02 10:15 | P.BOP ---
Preoperative diagnosis: infected scalp subQ mass Postoperative diagnosis: same Primary procedure: Excisional biopsy of infected scalp subQ mass 3x3cm Estimated blood loss: <10cc Specimen: mass, culture Findings: as above Anesthesia: General Complications: None Transferred to: Recovery Room Condition: Good
[2024-05-02] MEDS: HYDROMORPHONE HCL 1 MG/ML INJ ONE ×2 (10:48→10:58)
[2024-05-02] MEDS: FENTANYL CITR 100 MCG/2 ML ONE (11:08)
[2024-05-02 11:20] VITALS: O2SAT 98
[2024-05-02] MEDS: HYDROCODONE/APAP 5/325 MG TAB PO PRN (12:00)
[2024-05-02] MEDS ORDERED: PROMETHAZINE INJ 25 MG/ML AMP IV PRN (13:00)
[2024-05-02] MEDS: PROMETHAZINE INJ 25 MG/ML AMP IV ONE (13:54)
--- NOTE | 2024-05-02 13:55 | P.PN ---
Date of Service: 05/02/24 Subjective: feeling better, Ms. Allison is having an I&D under anesthesia this am Review of Systems 10-point ROS is otherwise unremarkable General: Unremarkable Eyes: Unremarkable ENT: Unremarkable Respiratory: wheeze improved Cardiovascular: Unremarkable Gastrointestinal: Unremarkable Musculoskeletal: Unremarkable Integumentary: Unremarkable Neurological: Unremarkable Lymphatics: Unremarkable Vitals: Reviewed - Physical Exam: General: Alert, Oriented x3, Cooperative, no distress HEENT: Atraumatic, Normocephalic, periorbital areas mildly edematous without erythema, EOMI Neck: Supple Respiratory: Clear to auscultation bilaterally, Normal air movement Cardiovascular: No edema, Regular rate/rhythm, Normal S1 S2 Capillary refill: <2 Seconds Gastrointestinal: Soft and benign, without hepatosplenomegaly Musculoskeletal: No clubbing, No swelling Integumentary: No rashes, No breakdown,top of head just right of midline coming to a head, other previous lesions resolving/resolved Neurological: Normal gait, Normal speech, Normal strength at 5/5 x4 extr, Cranial nerves 3-12 intact, Normal affect Lymphatics: No axilla or inguinal lymphadenopathy Assessment and plan wounds to scalp (Impetigo - Probable staph) failed outpatient therapy sepsis diabetes with hyperglycemia Plan: 1. Continue IV antibiotics (zyvox), continue po Zyvox, WBC hopefully at peak today, Neut % decreased. Repeat blood cultures drawn today. Initial cultures not returned yet,. Concern for toxic shock from gram + bacteria. Blood cultures x 2 sets negative 2. Continue with local wound care -scrub with hibiclens, bactroban to nares - Pt seen by Dr. Anthony 05/01/24. Planned I&D of scalp abscess this am. Will place orders to change Zyvox to po post op 3. Gentle IV hydration 4. Monitor and trend labs 5. Strict blood sugar monitoring, with SSI coverage and 20U Insulin Glargine daily, Hemoglobin A1c 8.5. Semglee 30u daily and added Metformin 1000mg po BID last pm, blood sugar readings coming down. 6. Pain control - c/o increased pain at op site so will keep in house overnight for control and plan early am discharge 7. GI and DVT prophylaxis Return to ADA diet\ Plan to dc in 24h Code status: full
--- NOTE | 2024-05-02 16:56 | P.DS ---
Admission Date: 04/29/24 Discharge Date: 05/03/24 Reason for Admission: Scalp cellulitis possible allergic reaction Consultations: Dr. Anthony Procedures: Incision and drainage of scalp mass/abscess under anesthesia Brief History of Present Illness: Ms. Vera is feeling better with no dyspnea at rest. Exertional dyspnea is decreased and she is more comfortable. She is ambulating around the room with her cane. Edema has decreased. Renal function at baseline. She denies chest pain. She is safe for discharge with Lasix daily instead of every other day x 2 weeks. She may continue the spironolactone 3 times weekly. We will continue her at home diabetes management. She should follow-up with Dr. Weiss, cardiology, and nephrology in 1 to 2 weeks. Last echo documented 01/05/2024 -ejection fraction 60 to 65%, mild MR/TR, severe pulmonary hypertension. Hospital Course: Ms. Allison is feeling better, her edema has subsided, and her white count and blood sugar is trending down. We will continue Zyvox for 3 additional days to complete 7 days of therapy. She will continue intranasal Bactroban x 7 days. Ms. Allison's blood sugar has been optimized. With the resolution of her infection, she can resume her normal home therapy. She will need to follow-up with her PCP in 1 to 2 weeks. I&D of scalp mass performed 05/02/[address] Anthony. Please follow up with Dr. Anthony in 1-2 weeks. 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 Uncontrolled type 2 diabetes Morbid obesity <JAYE Lam - Last Filed: 05/03/24 08:19> Disposition: ROUTINE DISCHARGE Discharge Condition: GOOD Vital Signs/Physical Exam: Temp Pulse Resp BP Pulse Ox 97.0 F 85 16 127/67 96 05/02/24 11:15 05/02/24 11:15 05/02/24 11:15 05/02/24 11:15 05/02/24 08:00 General: Alert, In no apparent distress, Oriented x3 HEENT: Atraumatic, Normocephalic Neck: Supple, 2+ carotid pulse no bruit Respiratory: Clear to auscultation bilaterally, Normal air movement Cardiovascular: Normal pulses, Regular rate/rhythm, Normal S1 S2 Capillary refill: <2 Seconds Gastrointestinal: Soft and benign Musculoskeletal: No clubbing, No swelling Integumentary: Other (post op site without edema, erythema. Other scalp wounds resolved) Neurological: Normal speech, Normal tone, Normal affect Lymphatics: No axilla or inguinal lymphadenopathy External genitalia: Deferred Rectal: Deferred Laboratory Data at Discharge: WBC 15.80 thou/uL (4.3-10.9) H 04/30/24 04:32 Hgb 11.1 g/dL (12.0-15.0) L 04/30/24 04:32 Hct 34.5 % (36.0-45.0) L 04/30/24 04:32 Plt Count 269 thou/uL (152-406) 04/30/24 04:32 PT 11.7 SECONDS (9.4-12.5) 04/28/24 21:57 INR 1.05 04/28/24 21:57 APTT 30.9 SECONDS (24.3-36.9) 04/28/24 21:57 Sodium 138 mEq/L (136-145) 04/30/24 04:32 Potassium 3.5 mEq/L (3.5-5.1) 04/30/24 04:32 BUN 15 mg/dL (7-18) 04/30/24 04:32 Creatinine 0.57 mg/dL (0.55-1.02) 04/30/24 04:32 Glucose 211 mg/dL (74-106) H 04/30/24 04:32 Total Bilirubin 0.2 mg/dL (0.2-1.0) 04/30/24 04:32 AST 19 U/L (15-37) 04/30/24 04:32 ALT 26 U/L (13-56) 04/30/24 04:32 Alkaline Phosphatase 69 U/L (45-117) 04/30/24 04:32 <Wooten,Bhakti Godfrey - Last Filed: 05/03/24 07:32> Vital Signs/Physical Exam: Temp Pulse Resp BP Pulse Ox 98.0 F 93 H 20 124/65 94 05/03/24 04:00 05/03/24 04:00 05/03/24 05:07 05/03/24 04:00 05/03/24 05:07 Laboratory Data at Discharge: WBC 15.70 thou/uL (4.3-10.9) H 05/03/24 04:21 Hgb 11.8 g/dL (12.0-15.0) L 05/03/24 04:21 Hct 36.1 % (36.0-45.0) 05/03/24 04:21 Plt Count 324 thou/uL (152-406) 05/03/24 04:21 PT 11.7 SECONDS (9.4-12.5) 04/28/24 21:57 INR 1.05 04/28/24 21:57 APTT 30.9 SECONDS (24.3-36.9) 04/28/24 21:57 Sodium 136 mEq/L (136-145) 05/03/24 04:21 Potassium 3.7 mEq/L (3.5-5.1) 05/03/24 04:21 BUN 16 mg/dL (7-18) 05/03/24 04:21 Creatinine 0.63 mg/dL (0.55-1.02) 05/03/24 04:21 Glucose 226 mg/dL (74-106) H 05/03/24 04:21 Total Bilirubin 0.3 mg/dL (0.2-1.0) 05/03/24 04:21 AST 25 U/L (15-37) 05/03/24 04:21 ALT 40 U/L (13-56) 05/03/24 04:21 Alkaline Phosphatase 65 U/L (45-117) 05/03/24 04:21 <JAYE Lam Ran - Last Filed: 05/03/24 08:19> Diet: ADA Activity: Ad ranjit <Wooten,Bhakti Godfrey - Last Filed: 05/03/24 07:32> <JAYE Lam - Last Filed: 05/03/24 08:19> Home Medications: Insulin Glargine,Hum.rec.anlog [Toujeo Max Solostar] 40 units SQ DAILY 04/29/24 Losartan Potassium 50 mg PO DAILY 04/29/24 Metformin ER [Glucophage ER*] 1,000 mg PO BID 04/29/24 Semaglutide [Ozempic] 2 mg SQ EVERY 7TH DAY 04/29/24 Mupirocin Calcium [Bactroban Nasal*] 1 appl SHAI BID #1 tube 05/01/24 Linezolid [Zyvox*] 600 mg PO BID #6 tab 05/03/24 New Medications: Mupirocin Calcium [Bactroban Nasal*] 1 appl SHAI BID #1 tube Linezolid [Zyvox*] 600 mg PO BID #6 tab Physician Discharge Instructions: Ms. Allison is feeling better, her edema has subsided, and her white count and blood sugar is trending down. We will continue Zyvox for 3 additional days to complete 7 days of therapy. She will continue intranasal Bactroban x 7 days. Ms. Allison's blood sugar has been optimized. With the resolution of her infection, she can resume her normal home therapy. She will need to follow-up with her PCP in 1 to 2 weeks. I&D of scalp mass performed 05/02/[address] Anthony. Please follow up with Dr. Anthony in 1-2 weeks. Followup: Layton Anthony MD [ACTIVE - CAN ADMIT] - 1-2 Weeks John Edmonds PAC [Primary Care Provider] - 1-2 Weeks
[2024-05-02] MEDS: LINEZOLID 600 MG TAB PO SCH (20:30)
[2024-05-03 04:49] LABS: Absolute Lymphocytes (CBC) 1.9 K/uL (0.7-4.9); Absolute Neutrophil 12.7 K/uL (1.8-8.0); Basophils % 0.1 % (0-1.3); Eosinophils % 0.1 % (0-4.4); Hematocrit 36.1 % (36.0-45.0); Hemoglobin 11.8 g/dL (12.0-15.0); Lymphocytes % 12.4 % (15.3-44.8); MCH 27.4 pg (27.0-35.0); MCHC 32.8 g/dL (32.0-36.0); MCV 83.7 fL (80-100); Monocytes % 6.5 % (3.3-12.3); Neutrophils % 80.9 % (41.7-73.7); Platelets 324 thou/uL (152-406); RBC Red Blood Cell Count 4.31 M/uL (3.86-4.86); Red Cell Distribution Width 13.6 % (12.1-15.2)
[2024-05-03 05:09] LABS: Albumin 2.9 g/dL (3.4-5.0); Albumin/Globulin Ratio 0.8 (1.1-1.8); Anion Gap 8.7 mEq/L (5.0-15.0); Bilirubin Total 0.3 mg/dL (0.2-1.0); Globulin 3.8 g/dL (2.3-3.5); Potassium 3.7 mEq/L (3.5-5.1); Protein, Total 6.7 g/dL (6.4-8.2)
[2024-05-03 08:53] VITALS: BP 126/72; TEMP 97.5
--- NOTE | 2024-05-23 22:32 | OP ---
Date of Procedure: 05/02/2024 Surgeon: Layton Anthony MD Preoperative Diagnosis: Infected scalp subcutaneous mass. Postoperative Diagnosis: Infected scalp subcutaneous mass. Procedure: Excisional biopsy of infected scalp subcutaneous mass, 3 x 3 cm. Estimated Blood Loss: Less than 10 cc. Specimens: Mass, culture. Anesthesia: General plus local. Complications: None. Indications: This is a case of a female who comes to us with an infected mass, admitted to the [facility] due to cellulitis. The benefits, alternatives, and risks of excision were fully explained, which include, but not limited to, infection, bleeding, damage to adjacent structures, anesthesia complica tion, recurrence, ID, and even . She also understands this may not relieve the symptoms. She m ight need more than one surgical intervention. She understood and signed a consent. The area of con cern was marked by me and the patient in the holding room. She also understands the chance of alopec ia. Since the infection and the open wound might have to left partially open to heal from inside out . We are going to trying to approximate the skin the best we can to minimize that gap. At the same time, we have to allow some the area to heal as a secondary intention. She understood and signed a consent. Procedure In Detail: The area of concern was marked by me and the patient in the holding room. The patient was brought to the operating room and placed in supine position. Anesthesia was done without complication. The scalp area was prepped and draped in usual sterile fashion. We did not shave. W e put the hair into side, as we explained to her, to minimize alopecia. After that, we identified th e margins of the wound. After time-out, after injecting local anesthetic, and then prepped and drape d the area in usual sterile fashion, we proceeded to do wedge incision on the skin all the way down t o the subcutaneous tissue. The mass was removed in 1 unit profusely. She does not want a big gap right at the hairline on the front side of the forehead and we were ab le to leave the area partially open, approximate some with nylon, and then minimize the open region. That was done after hemostasis and after profuse irrigation. Packing was done with 4 x 4 and covere d with sterile dressings. The patient tolerated procedure well. The patient was sent to recovery in stable condition. MAXIM/MADHURI Voice ID: [id number] Report ID: [id number]
== END 2024-05-03 08:49 | disposition home or self-care (01) | DRG 872 ==
LOC: ER 20:58 → ERHOLD 23:46 → 2ND 04-29 05:46 → OBSVTOIN 04-29 09:33
PROVIDERS: ADMIT Internal Medicine Sleep Medicine; ATTEND Internal Medicine
PROC: 0JB00ZX Excision of Scalp Subcutaneous Tissue and Fascia, Open Approach, Diagnostic (ICD-10-PCS; principal; 2024-05-02 09:45)
DX: A41.02 Sepsis due to Methicillin resistant Staphylococcus aureus (principal); L03.811 Cellulitis of head [any part, except face]; R65.20 Severe sepsis without septic shock; I10 Essential (primary) hypertension; L01.09 Other impetigo; E11.65 Type 2 diabetes mellitus with hyperglycemia; E11.649 Type 2 diabetes mellitus with hypoglycemia without coma; E66.01 Morbid (severe) obesity due to excess calories; Z23 Encounter for immunization; Z68.39 Body mass index [BMI] 39.0-39.9, adult; Z79.84 Long term (current) use of oral hypoglycemic drugs; Z90.49 Acquired absence of other specified parts of digestive tract; Z79.899 Other long term (current) drug therapy
CPT/HCPCS: 36415; 80053; 81025; 82947; 83036; 83605; 85025; 85610; 85730; 87040; 87070; 87075; 87077; 87186; 87205; 88304; 93005; 94010; 96361; 96365; 96366; 96375; 99285; G0378; J1100; J1171; J1200; J2003; J2020; J2250; J2405; J2550; J2704; J2919; J3010; J7030